=== PATIENT | male | born 1995 | race Caucasian/White ===

== ENCOUNTER 2024-04-07 16:02 | Inpatient (IN) | payer MEDICAID ==
[2024-04-07] MEDS ORDERED: MAGNESIUM HYDROXIDE 2,400 MG/30 ML CUP PO PRN (16:37)
[2024-04-07] MEDS ORDERED: MAG HYDROX/AL HYDROX/SIMETH 355 ML BOTTLE PO PRN (16:37)
[2024-04-07] MEDS ORDERED: haloperidoL 5 MG TAB PO PRN (16:38)
[2024-04-07] MEDS ORDERED: HALOPERIDOL LACTATE 5 MG/ML 1 ML VIAL IM PRN (16:38)
[2024-04-07] MEDS ORDERED: LORazepam 2 MG/ML INJ IM PRN (16:38)
[2024-04-07] MEDS: LITHIUM CARBONATE 300 MG CAP PO SCH (20:31)
[2024-04-07] MEDS: OLANZapine ODT 5 MG TAB PO SCH (20:31)
[2024-04-07 21:13] LABS: Appearance,Urine Clear (Clear); Bilirubin,Urine Negative (Negative); Blood,Urine Negative (Negative); Color,Urine Colorless; Glucose,Urine (UA) Negative (Negative); Ketones,Urine Negative (Negative); Leukocyte Esterase,Urine Negative (Negative); Nitrite,Urine Negative (Negative); Protein,Urine Negative (Negative); Specific Gravity,Urine 1.018 (1.001-1.035); Urobilinogen,Urine <2.0 mg/dL (<2.0)
--- NOTE | 2024-04-08 04:50 | P.CONS ---
History of Present Illness - Reason for Consult Consult date: 04/08/24 - History of Present Illness The patient is a 28-year-old male with a PMH of bipolar disorder, anxiety, GERD, Graves' disease s who was transferred from [facility]. The patient was seen in the mental health unit. He reported feeling well at the time of interview and had no active complaints. He does report recreational marijuana use along with tobacco use but denied any illicit substance or alcohol use. Denies ex periencing chest discomfort, shortness of breath, fever, chills, cough, nausea, vomiting, abdominal pain, diarrhea. Review of systems: Pertinent positives and negatives as discussed in HPI, a complete review of systems was performed and all other systems are negative. Physical examination: General: non toxic, no distress, appears at stated age, normal weight Derm: no unusual rashes/lesions, no unusual ecchymoses, warm, dry Head: atraumatic, normocephalic, symmetric Eyes: EOMI, no lid lag, anicteric sclera ENT: Nose and ears atraumatic, no thrush, no pharyngeal erythema Neck: trachea midline, supple Mouth: no lip lesion, mucus membranes moist Cardiovascular: S1S2 reg, no murmur, no edema Lungs: CTA bilateral, no rhonchi, no rales , no accessory muscle use Abdominal: soft, nontender to palpation, no guarding Ext: no gross muscle atrophy, no contractures, Neuro: No gross focal neuro deficits noted Psych: Alert, oriented, appropriate affect Assessment: Marijuana abuse Graves' disease, not currently on medications Bipolar disorder Imaging: None performed Data Review: UA reviewed and unremarkable Plan: Advised on importance of cessation from marijuana use Resume further home meds once reconciled Defer management of bipolar disorder to primary psychiatry service Thank you for allowing us to participate in the care of this patient. We will follow peripherally. Do not hesitate to contact us with questions. Someone can be reached from the [facility] hospitalist group at all hours of the day at [phone]. Past Medical History Past Medical History: GERD/Reflux Additional Past Medical History / Comment(s): Graves Disease, Hx of Concussion 2010 History of Any Multi-Drug Resistant Organisms: None Reported Past Surgical History: No Surgical Hx Reported Past Anesthesia/Blood Transfusion Reactions: No Reported Reaction Smoking Status: Vaper - Past Family History Mother Additional Family Medical History / Comment(s): Hard of hearing Father Family Medical History: Diabetes Mellitus Additional Family Medical History / Comment(s): Hx weight loss surgery Medications and Allergies Home Medications Medication Instructions Recorded Confirmed Type ALPRAZolam [Xanax] 1 mg PO BID 04/07/24 04/07/24 History ALPRAZolam [Xanax] 1 mg PO DAILY PRN 04/07/24 04/07/24 History [place] Carbonate [[place] 1,200 mg PO HS 04/07/24 04/07/24 History Carbonate ER] OLANZapine [OLANZapine Odt] 15 mg SUBLINGUAL HS 04/07/24 04/07/24 History Allergies Allergy/AdvReac Type Severity Reaction Status Date / Time diphenhydramine Allergy Nausea & Verified 04/07/24 21:25 [From Benadryl] Vomiting ketorolac Allergy Rash/Hives Verified 04/07/24 21:25 lurasidone Allergy Abdominal Verified 04/07/24 21:25 Pain omeprazole Allergy Nausea & Verified 04/07/24 21:25 Vomiting samidorphan Allergy Unknown Verified 04/07/24 21:25 tramadol Allergy Nausea & Verified 04/07/24 21:25 Vomiting Physical Exam Vitals: Vital Signs Temp Pulse Resp BP Pulse Ox 04/07/24 19:27 98.7 F 94 18 132/88 96 Intake and Output 04/07/24 04/07/24 04/08/24 14:59 22:59 06:59 Other: Weight 112.037 kg
[2024-04-08] MEDS: ACETAMINOPHEN TAB 325 MG TAB PO PRN (06:46)
[2024-04-08] MEDS: ALPRAZolam 0.5 MG TAB PO PRN (06:47)
[2024-04-08] MEDS: NICOTINE GUM (POLACRILEX) 2 MG GUM BUCCAL PRN (10:47)
--- NOTE | 2024-04-08 12:34 | P.HP ---
Psychiatric H&P - . H&P Date: 04/08/24 History & Physical: Allergies Allergy/AdvReac Type Severity Reaction Status Date / Time diphenhydramine Allergy Nausea & Verified 04/07/24 21:25 From Benadryl Vomiting ketorolac Allergy Rash/Hives Verified 04/07/24 21:25 lurasidone Allergy Abdominal Verified 04/07/24 21:25 Pain omeprazole Allergy Nausea & Verified 04/07/24 21:25 Vomiting samidorphan Allergy Unknown Verified 04/07/24 21:25 tramadol Allergy Nausea & Verified 04/07/24 21:25 Vomiting Vital Signs Temp 98.7 F 04/07/24 19:27 Pulse 99 04/08/24 07:04 Resp 18 04/07/24 19:27 BP 128/85 04/08/24 07:04 Pulse Ox 96 04/07/24 19:27 FiO2 Intake & Output 04/07/24 04/08/24 04/08/24 18:59 06:59 18:59 Weight 113.4 kg 112.037 kg Laboratory Last Values Urine Color Colorless 04/07/24 20:52 Urine Appearance Clear (Clear) 04/07/24 20:52 Urine pH 7.0 (5.0-8.0) 04/07/24 20:52 Ur Specific [place] 1.018 (1.001-1.035) 04/07/24 20:52 Urine Protein Negative (Negative) 04/07/24 20:52 Urine Glucose (UA) Negative (Negative) 04/07/24 20:52 Urine Ketones Negative (Negative) 04/07/24 20:52 Urine Blood Negative (Negative) 04/07/24 20:52 Urine Nitrite Negative (Negative) 04/07/24 20:52 Urine Bilirubin Negative (Negative) 04/07/24 20:52 Urine Urobilinogen <2.0 mg/dL (<2.0) 04/07/24 20:52 Ur Leukocyte Esterase Negative (Negative) 04/07/24 20:52 04/08/24 12:20 IDENTIFYING DATA: Patient is a 28-year-old single male, employed and living with parents CHIEF COMPLAINT: Hallucinations, aggression HPI: Patient presented to the hospital with homicidal statements and psychosis. EPS evaluation revealed, "Per charting pt is having hallucinations, unclear if t hey are A or V. Pt was having aggressive behavior towards his family members and he was worried that he was going to hurt them. Pt is displaying paranoia and psychosis per notes. Pt is irritable and aggressive. Pt was petitioned for making threats against staff as well. In restraints. Pt was given Haldol on 04/05. Pt have hx of Bipolar, depression, anxiety, GERD, Graves, concussion in 2010. Pt has a current abrasion on right frontal sclap in the healing process per doctors. Pt hit his head moving furniture, no LOC. UDS was pos for benzos and marijuana. [place] level was low at 0.23, non-therapuetic level. VSS. Covid negative. ETOH <10." Patient seen and evaluated on the unit and was agreeable with speaking to editorial writer in office. He states having 2 recent inpatient hospitalizations with medication adjustments. He states being inpatient for 3 weeks at a manic episode which was attributed to Zoloft and this was stopped. Patient states he continued to not feel right despite being discharged, in addition to running out of his medications and so was admitted again and this time Abilify was switched to Zyprexa however he reports still exhibiting paranoia, racing thoughts and hallucinations. He reports issues with staff at the prior hospital and that this was why he received as needed medications and had to be placed in restraints. 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 He reports a previous issue with sedation on psychotropic medications and was agreeable with switching Zyprexa to Invega with the ultimate goal to transition to long-acting. Patient denies any suicidal or homicidal ideations intent or plan. Patient does report chronic auditory hallucinations described as either 1 or 2 people and that they sometimes command him to do things. He states recently holding a baby and the voices were telling him to drop the baby and this was distressing for him. He reports racing thoughts, difficulties with concentration however reports good sleep and stable energy. He reports paranoia. Patient denies any flight of ideas racing thoughts and increased in goal directed behavior. Patient admits to using cannabis and vaping nicotine daily PAST PSYCHIATRIC HISTORY: Patient has a history of bipolar, depression, anxiety. Patient is currently prescribed lithium 1200 mg at bedtime, Zyprexa 15 mg at bedtime, Xanax 1 mg 3 times daily. MAPs revealed patient has been feeling Xanax 1 mg 3 times daily regularly. He states he has tried Depakote, Risperdal in the past. He reports 5 inpatient hospitalizations, 2 this year ([facility] and [facility]). He sees Karen Irene at [facility]. Patient denies any history of suicide attempts in the past. PMH: as per ER note ALLERGIES: as per EMR SUBSTANCE USE HISTORY: As per HPI FAMILY PSYCHIATRIC/SUBSTANCE USE HISTORY: He reports several cousins have depression SOCIAL HISTORY: Patient is single, has no children and currently living at home with his family. He has a bachelor's in social work and works as a nursing teacher. He denied any legal issues. MENTAL STATUS EXAM: General Appearance: Patient appears to be stated age is alert, directable, and attempts to cooperate. Patient appears to have fair hygiene and grooming. Behavior: Patient is seated without any agitated behavior. Speech: Patient's speech is fluent and nonpressured. Mood/Affect: Patient reports their mood is "okay", affect is congruent and constricted. Suicidality/Homicidality: Patient denies having any homicidal ideation intent or plan. Denies any suicidal ideations intent or plan Perceptions: Patient denies any visual hallucinations and reports auditory hallucinations that sometimes are command in nature Though content/process: There is evidence of paranoia however no delusional thoughts noted, thought process is linear Memory and concentration: AOX3, grossly intact for the purposes of this session. Can spell "WORLD" backwards Judgment and insight: Poor STRENGTHS/WEAKNESSES: strength is that patient is resilient. Weakness is that patient has poor judgment and is impulsive INTELLECT: Average IMPRESSIONS: Schizoaffective disorder, bipolar type Cannabis use disorder Nicotine dependence PLAN: -Patient is admitted under voluntary status to MHU for stabilization of psychiatric symptoms and safety. Patient has signed adult voluntary form and medication consent and is placed in patient's chart. -Medications : Cross titrate Zyprexa with Invega with a plan to decrease Zyprexa to 10 mg tonight and start Invega 3 mg daily. Continue lithium 1200 mg daily, Xanax 1 mg 3 times daily as needed -Xanax and Haldol PRN for agitation/aggression -Patient was informed of the risks, benefits and side effects of the medication and patient verbally consented to taking the medications. Patient signed med consent form and was placed in chart. -Internal Medicine consult to perform medical evaluation and physical. -NRT -nicotine patch -SW on board for discharge planning. Encourage patient to participate in groups to work on coping skills. Anticipate discharge home with family on pending stabilization and safety concerns 04/08/24 12:33
[2024-04-08] MEDS: PALIPERIDONE 3 MG TAB.ER.24 PO SCH (13:43)
[2024-04-08] MEDS: LITHIUM CARBONATE 300 MG CAP PO SCH (13:44)
[2024-04-08] MEDS: NICOTINE 14MG/24HR PATCH TRANSDERM SCH (16:04)
[2024-04-08] MEDS: OLANZapine ODT 10 MG TAB PO SCH (20:15)
[2024-04-08] MEDS ORDERED: LITHIUM CARBONATE 300 MG CAP PO SCH (21:00)
--- NOTE | 2024-04-09 10:34 | P.PN ---
Progress Note - Text Progress Note Date: 04/09/24 Interval History: Patient was seen wandering the hallways and was directable and agreeable to sp hubert with board writer in the office. He states feeling better however reports some adverse effects described as dizziness and fatigue. He states sleeping well overall overnight and that he has been hydrating well. He denied any worsening in his voices and also vehemently denied any suicidal ideations. His goal oriented today, talked about spending time with his family for Thanksgiving. He eventually does wish to transition to [facility] however is agreeable with deferring this to outpatient. Patient otherwise has been attending groups with no behaviors on the unit. At this time patient denies any homicidal ideations, intent or plan. Patient denies any visual hallucinations and denies any paranoia or delusions. Patient has been compliant with meds. Mental Status Exam: General Appearance: Patient appears to be stated age is alert, directable, and cooperative. Behavior: Patient is calmly seated without any agitated behavior. Speech: Patient's speech is fluent and nonpressured. Mood/Affect: Mood is improving mildly, affect is congruent and constricted. Suicidality/Homicidality: Patient denies having any suicidal or homicidal ideation intent or plan. Perceptions: Patient denies any visual hallucinations and reports stable auditory hallucinations Though content/process: There is no evidence of any delusional thought content and thought process is linear and goal-directed. No overt paranoia Memory and concentration: AOX3, grossly intact for the purposes of this session Judgment and insight: Improving mildly Assessment Schizoaffective disorder, bipolar type Cannabis use disorder Nicotine dependence Plan: -Patient continues to meet criteria for inpatient psychiatric admission for symptom stabilization and safety. Patient has signed adult voluntary form and medication consent and was placed in patient's chart. -Medications: Discontinue Zyprexa and increase Invega to 3 mg twice daily for psychosis, continue lithium 1200 mg daily, Xanax 1 mg 3 times daily as needed for anxiety. Will plan on transitioning to [facility] outpatient -When necessary Xanax and Haldol for agitation/aggression. -Labs: Reviewed -NRT -nicotine patch -SW on board for discharge planning. Encouraged the patient to participate in milieu. Anticipate discharge home with family tomorrow
[2024-04-09] MEDS: PALIPERIDONE 3 MG TAB.ER.24 PO SCH (20:51)
[2024-04-09] MEDS ORDERED: OLANZapine ODT 5 MG TAB PO SCH (21:00)
[2024-04-10 06:04] VITALS: BP 121/82; PULSE 85; RESP 15; TEMP 98.2
--- NOTE | 2024-04-10 12:12 | P.DS ---
Providers Date of admission: 04/07/24 19:22 Expected date of discharge: 04/10/24 Attending physician: Kaya Anthony MD Consults: 04/07/24 16:37 Consult Physician Routine Consulting Provider: Marybel Physician Consult Reason/Comments: H&P Do you want consulting provider notified?: Yes Primary care physician: Yanni Burnett, DO - Discharge Diagnosis(es) (1) Schizoaffective disorder, bipolar type Current Visit: Yes Status: Acute Priority: High (2) Cannabis use disorder Current Visit: Yes Status: Acute Priority: Low (3) Nicotine dependence Current Visit: Yes Status: Acute Priority: Low Hospital Course: Admission HPI: Admission note was completed by telegraphic typewriter operator "Patient presented to the hospital with homicidal statements and psychosis. EPS evaluation revealed, "Per charting pt is having hallucinations, unclear if they are A or V. Pt was having aggressive behavior towards his family members and he was worried that he was going to hurt them. Pt is displaying paranoia and psychosis per notes. Pt is irritable and aggressive. Pt was petitioned for making threats against staff as well. In restraints. Pt was given Haldol on 04/05. Pt have hx of Bipolar, depression, anxiety, GERD, Graves, concussion in 2010. Pt has a current abrasion on right frontal sclap in the healing process per doctors. Pt hit his head moving furniture, no LOC. UDS was pos for benzos and marijuana. [place] level was low at 0.23, non-therapuetic level. VSS. Covid negative. ETOH <10." Patient seen and evaluated on the unit and was agreeable with speaking to telegraphic typewriter operator in office. He states having 2 recent inpatient hospitalizations with medication adjustments. He states being inpatient for 3 weeks at a manic episode which was attributed to Zoloft and this was stopped. Patient states he continued to not feel right despite being discharged, in addition to running out of his medications and so was admitted again and this time Abilify was switched to Zyprexa however he reports still exhibiting paranoia, racing thoughts and hallucinations. He reports issues with staff at the prior hospital and that this was why he received as needed medications and had to be placed in restraints. He was goal oriented and talked about his ultimate goal to become a nurse and that he is working as a nurse assistant farm operations manager right now. He reports a previous issue with sedation on psychotropic medications and was agreeable with switching Zyprexa to Invega with the ultimate goal to transition to long-acting. Patient denies any suicidal or homicidal ideations intent or plan. Patient does report chronic auditory hallucinations described as either 1 or 2 people and that they sometimes command him to do things. He states recently holding a baby and the voices were telling him to drop the baby and this was distressing for him. He reports racing thoughts, difficulties with concentration however reports good sleep and stable energy. He reports paranoia. Patient denies any flight of ideas racing thoughts and increased in goal directed behavior. Patient admits to using cannabis and vaping nicotine daily" Hospital course: Upon admission to the unit patient was directable and agreeable to commence treatment and signed adult voluntary form.. Patient got along well with other patients on the unit and followed unit protocol. Patient was compliant with the medications and denied any side effects throughout hospital course. Patient was started on Invega and this was increased to 3 mg twice daily for psychosis with Zyprexa tapered off given its ineffectiveness. Was continued on lithium 1200 mg daily for mood stabilization, Xanax 1 mg 3 times daily as needed for anxiety. Ultimate plan is to transition to [facility] outpatient and patient is agreeable with this. Patient spoke of his stressors and engaged in therapy both group and individual. Patient was also seen by medical team for history and physical exam. Throughout the course of the hospitalization patient gradually improved with regards to mood, anxiety, sleep and returned back to their baseline level of functioning. On the day of discharge patient denied any suicidal or homicidal ideations intent or plan denied any visual hallucinations but does report stable, chronic auditory hallucinations. The patient denied any access to guns or weapons. Patient denied any paranoia and did not endorse any delusions. Patient does not have a significant history of substance abuse and was counseled on abstaining from all substances including alcohol and marijuana. Patient was also counseled on the medications and need for regular compliance and was encouraged to follow-up with their outpatient appointment for mental health and also for primary care. Prior to discharge a family meeting will be arranged by child welfare social worker to answer any questions and ensure safety upon discharge incuding making sure that guns/weapons are either removed from the home or locked away. Patient to be discharged home with family with follow-up at [facility] Mental status exam: General Appearance: Patient appears to be stated age is alert, pleasant, and cooperative. Patient is in no acute distress and has improved hygiene and grooming Behavior: Patient is calmly seated without any agitated behavior. Speech: Patient's speech is fluent and nonpressured. Mood/Affect: Patient reports their mood is "good", affect is congruent and euthymic. Suicidality/Homicidality: Patient denies having any suicidal or homicidal ideation intent or plan. Perceptions: Patient denies any visual hallucinations however does report stable, chronic auditory hallucinations. Though content/process: There is no evidence of any delusional thought content and thought process is linear and goal-directed. More future oriented Memory and concentration: AOX3, grossly intact for the purposes of this session. Can spell "WORLD" backwards correctly. Judgment and insight: Good Impression: Schizoaffective disorder, bipolar type Cannabis use disorder Nicotine dependence Plan: -Continue with discharge today as patient has improved and stabilized psychiatrically and is not currently an imminent threat to themself and/or others. -Continue medications: Invega 3 mg twice daily with a plan to transition to [facility] outpatient, lithium 1200 mg daily, Xanax 1 mg 3 times daily as needed -Patient was counseled on the need for medication compliance and appropriate follow-up at mental health and also primary care for medical issues. Patient verbalized understanding and agreed. -Social work to help coordinate patients discharge today arrange for and conduct family meeting to ensure safety upon discharge and answer any questions/concerns. also to ensure safe home environment that guns/weapons are either removed from the home or locked away. Social work also to arrange for patients follow up appointments with [facility] for psychiatric care along with follow up with primary care provider. -Patient counseled on abstaining from recreational drugs and marijuana and alcohol. Was informed/educated on the adverse effects on their physical and mental health. Patient verbally agreed and understood. -Patient was instructed to return to the hospital or seek immediate medical care if their psychiatric or medical symptoms do worsen or reoccur. Vital Signs Temp 98.2 F 04/10/24 06:00 Pulse 85 04/10/24 06:00 Resp 15 04/10/24 06:00 BP 121/82 04/10/24 06:00 Pulse Ox 97 04/10/24 06:00 FiO2 Allergies Allergy/AdvReac Type Severity Reaction Status Date / Time diphenhydramine Allergy Nausea & Verified 04/07/24 21:25 From Benadryl Vomiting ketorolac Allergy Rash/Hives Verified 04/09/24 09:14 lurasidone Allergy Abdominal Verified 04/07/24 21:25 Pain omeprazole Allergy Nausea & Verified 04/07/24 21:25 Vomiting samidorphan Allergy Unknown Verified 04/07/24 21:25 tramadol Allergy Nausea & Verified 04/07/24 21:25 Vomiting Patient Condition at Discharge: Stable Plan - Discharge Summary Discharge Rx Participant: No New Discharge Prescriptions: New Paliperidone [Invega] 3 mg PO BID 30 Days #60 tab [place] Carbonate 1,200 mg PO DAILY 30 Days #120 cap Acetaminophen Tab [Tylenol] 650 mg PO Q4HR PRN 30 Days #60 tab PRN Reason: Mild Pain (Scale 1 To 3) ALPRAZolam [Xanax] 1 mg PO TID PRN tab PRN Reason: Anxiety Nicotine Gum (Polacrilex) [Nicorette] 2 mg BUCCAL Q2HR PRN 30 Days #30 pieceofgum PRN Reason: Nicotine Cravings Pantoprazole Sodium [Protonix] 20 mg PO BID 30 Days #60 tab Continue ALPRAZolam [Xanax] 1 mg PO BID ALPRAZolam [Xanax] 1 mg PO DAILY PRN PRN Reason: Anxiety [place] Carbonate [[place] Carbonate ER] 1,200 mg PO HS Discontinued OLANZapine [OLANZapine Odt] 15 mg SUBLINGUAL HS Discharge Medication List ALPRAZolam [Xanax] 1 mg PO BID 04/07/24 [History] ALPRAZolam [Xanax] 1 mg PO DAILY PRN 04/07/24 [History] [place] Carbonate [[place] Carbonate ER] 1,200 mg PO HS 04/07/24 [History] ALPRAZolam [Xanax] 1 mg PO TID PRN tab 04/10/24 [Rx] Acetaminophen Tab [Tylenol] 650 mg PO Q4HR PRN 30 Days #60 tab 04/10/24 [Rx] [place] Carbonate 1,200 mg PO DAILY 30 Days #120 cap 04/10/24 [Rx] Nicotine Gum (Polacrilex) [Nicorette] 2 mg BUCCAL Q2HR PRN 30 Days #30 pieceofgum 04/10/24 [Rx] Paliperidone [Invega] 3 mg PO BID 30 Days #60 tab 04/10/24 [Rx] Pantoprazole Sodium [Protonix] 20 mg PO BID 30 Days #60 tab 04/10/24 [Rx] Follow up Appointment(s)/Referral(s): Noe Carrasquillo [Other] - 04/12/24 11:30 am Yanni Burnett DO [Primary Care Provider] - 1 Week Patient Instructions/Handouts: How to Stop Smoking (DC), Schizoaffective Disorder (GEN) Activity/Diet/Wound Care/Special Instructions: [facility] Discharge Info Avoid the use of street drugs and alcohol. Take all medications as prescribed. When you are in need of refills on your medications, please contact your outpatient medical provider and/or outpatient psychiatrist. Please go to your scheduled outpatient appointments for aftercare treatment. If symptoms return or become worse, call the crisis line at or and/or visit the nearest emergency room for assistance. National Suicide and Crisis Lifeline - call or text 218 Discharge Disposition: HOME SELF-CARE
== END 2024-04-10 14:20 | disposition home or self-care (01) | DRG 750 ==
LOC: 3MHU 19:22
PROVIDERS: ADMIT Psychiatry & Neurology Psychiatry; ATTEND Psychiatry & Neurology Psychiatry
DX: F25.0 Schizoaffective disorder, bipolar type (principal); R45.850 Homicidal ideations; E05.00 Thyrotoxicosis with diffuse goiter without thyrotoxic crisis or storm; F12.10 Cannabis abuse, uncomplicated; F17.290 Nicotine dependence, other tobacco product, uncomplicated; R42 Dizziness and giddiness; Z11.52 Encounter for screening for COVID-19; Z87.820 Personal history of traumatic brain injury; Z78.1 Physical restraint status; Z79.899 Other long term (current) drug therapy
CPT/HCPCS: 81003; 83036; 84443